=== PATIENT | female | born 1995 | race Caucasian/White ===

== ENCOUNTER 2019-01-14 15:27 | Emergency (ER) | payer SELFPAY ==
[~2019-01-14] VITALS: Ht 165.1 cm; Wt 59.0 kg
[2019-01-14 15:37] VITALS: BP 126/75
--- NOTE | 2019-01-14 15:37 | NUR ---
ALLA CARTER AT BEDSIDE FOR EVAL.
[2019-01-14] MEDS ORDERED: LIDOCAINE 1%-EPI 1:100,000 20 ML VIAL ONE (15:47)
[2019-01-14] MEDS ORDERED: IBUPROFEN 600 MG TABLET PO ONE ×2 (15:54→16:00)
[2019-01-14] MEDS ORDERED: TDAP [DIPH/PERTUSSIS/TET] 0.5 ML VIAL IM ONE ×2 (15:55→16:00)
[2019-01-14] MEDS ORDERED: LIDOCAINE 1%-EPI 1:100,000 50 ML VIAL IJ ONE (16:00)
--- NOTE | 2019-01-14 16:20 | NUR ---
WOUND SUTURING DONE MY ALLA CARTER.
--- NOTE | 2019-01-14 16:39 | NUR ---
Patient discharged to home in stable condition. Written and verbal after care instructions given. Patient verbalizes understanding of instruction.
== END 2019-01-14 16:39 | disposition home or self-care (01) ==
LOC: ER 15:32
DX: S71.111A Laceration without foreign body, right thigh, initial encounter (principal); F10.10 Alcohol abuse, uncomplicated; Y90.9 Presence of alcohol in blood, level not specified; W25.XXXA Contact with sharp glass, initial encounter; Y93.89 Activity, other specified; Y92.89 Other specified places as the place of occurrence of the external cause; Y99.8 Other external cause status
CPT/HCPCS: 12001; 90471; 90715; 99283; A4606; J3490 ×2; A6403